=== PATIENT | male | born 1960 | race Caucasian/White ===

== ENCOUNTER → 2016-11-05 | Outpatient (CLI) | payer MEDICAID ==
--- NOTE | 2016-11-05 14:35 | DX ---
Chest, Two Views - November 05, 2016 at 1229 hours History: Preoperative for hip replacement Comparison: None. Findings: Cardiac silhouette is within normal range. Right total shoulder arthroplasty partially visu alized. Moderate osteoarthritis in the left glenohumeral joint with osteophytes and sclerosis. No pne umonia, congestive heart failure, pleural effusion, or pneumothorax. Impression: No acute pulmonary disease.
== END ==
LOC: CLAB 11:59
PROVIDERS: ATTEND Family Medicine
DX: Z01.818 Encounter for other preprocedural examination (principal)
CPT/HCPCS: 71020-PO

== ENCOUNTER → 2017-08-20 | Outpatient (CLI) | payer MEDICAID | LOC: EDSTATUS 08:09 → CIMAGING 11:09 | PROVIDERS: ATTEND Family Medicine | DX: M54.5 Low back pain (principal) | CPT/HCPCS: 72100-PO; 80053-PO ==